=== PATIENT | female | born 1965 | race Caucasian/White ===

== ENCOUNTER 2019-04-05 19:09 | Emergency (ER) | payer OTHER, SELFPAY ==
[2019-04-05 19:30] VITALS: BP 185/103; PULSE 78; RESP 21; TEMP 37.1; O2SAT 98; BMI 24.1
--- NOTE | 2019-04-05 19:37 | DI.CT.S_ITS ---
PROCEDURE: CT HEAD/BRAIN WO CON INDICATIONS: fall with head/face injury TECHNIQUE: Noncontrast 4.5 mm thick angled axial sections acquired from the foramen magnum to the vertex, with coronal and sagittal reformats. For radiation dose reduction, the following was used: automated exposure control, adjustment of mA and/or kV according to patient size. COMPARISON: None. FINDINGS: Image quality: Excellent. CSF spaces: Basal cisterns are patent. No extra-axial fluid collections. Ventricles are normal in size and shape. Brain: No midline shift. No intracranial masses or hemorrhage. Ceron-white matter interface is normal. Skull and face: Calvarium and visualized facial bones are intact, without suspicious lesions. Right facial periorbital soft tissue swelling/hematoma. Sinuses: Visualized sinuses and mastoids are clear. IMPRESSION: No acute intracranial disease process. Dictated by: Jes Gomez MD, PhD on 04/05/2019 at 19:59 Approved by: Jes Gomez MD, PhD on 04/05/2019 at 20:00
--- NOTE | 2019-04-05 19:37 | DI.CT.S_ITS ---
PROCEDURE: CT FACIAL BONES WO CON INDICATIONS: fall with significant facial injury TECHNIQUE: Noncontrast 2.5 mm thick axial images acquired from the mandible through the frontal sinuses, with coronal and sagittal reformatting. For radiation dose reduction, the following was used: automated exposure control, adjustment of mA and/or kV according to patient size. COMPARISON: None. FINDINGS: Image quality: Excellent. Bones and teeth: Orbital teresa are intact. Sinus teresa show no fracture or deformity. Nasal bones and septum are intact. Visualized portions of the mandible demonstrate no fractures or subluxation. Zygomatic arches are intact. Pterygoid plates are intact. Visualized portions of the skull base and auditory canals are intact. Sinuses: Paranasal sinuses are aerated, without fluid levels, mucosal thickening, or mucoceles. Mastoid air cells are aerated. Soft tissues: Right periorbital facial soft tissue swelling/hematoma noted. No enlarged lymph nodes. No soft tissue lacerations or debris. Vascular: Visualized vascular structures appear normal in the absence of contrast. Bony vascular foramina and canals are intact. IMPRESSION: No fracture. Dictated by: Jes Gomez MD, PhD on 04/05/2019 at 20:01 Approved by: Jes Gomez MD, PhD on 04/05/2019 at 20:04
[2019-04-05 19:59] VITALS: BP 194/106; PULSE 81; RESP 16; O2SAT 100
--- NOTE | 2019-04-05 20:25 | ED.FALL ---
HPI - Fall General Chief Complaint: Fall Stated Complaint: Fell, hit rt eye Time Seen by Provider: 04/05/19 19:37 Source: patient and family Mode of arrival: ambulatory Limitations: no limitations History of Present Illness HPI Narrative: 54-year-old female nonsmoker with history of hypertension presents with her in the chief complaint of a mechanical fall in which she has stumbled and fell forward into a wall last night. She denies any loss of consciousness nor vomiting. She takes no blood thinners and denies use of alcohol or street drugs. She denies any neck pain and has no focal neurologic findings such as numbness, weakness or tingling. She does have rather significant swelling over her right eye and has had decreased appetite and nausea over the course of the day. She is acting normal and at her baseline per her . MD complaint: fall Onset (ago): day(s) Fall from: standing Fall witnessed: yes, by family Place fall occurred: home Loss of consciousness: none Prolonged down time: no Symptoms prior to fall: none Context: tripped/slipped Location of injury: face Severity: moderate Associated symptoms (after fall): headache Related Data Previous Rx's Medication Instructions Recorded ketorolac 10 mg PO Q6H PRN #14 tab 04/05/19 ondansetron 4 mg PO TID-QID PRN #10 tab 04/05/19 Allergies Allergy/AdvReac Type Severity Reaction Status Date / Time No Known Drug Allergies Allergy Verified 04/05/19 20:31 Review of Systems Constitutional Denies chills, Denies fever(s), Denies lethargy and Denies weakness Eyes Denies change in vision, Denies eye discharge, Denies irritation and Denies loss of vision ENT Ears, Nose, Mouth, and Throat: Denies change in voice, Denies neck pain and Denies sore throat Cardiovascular Denies chest pain, Denies irregular heart rhythm, Denies lightheadedness, Denies palpitations, Denies dyspnea, Denies dyspnea on exertion and Denies orthopnea Respiratory Denies cough, Denies dyspnea, Denies dyspnea on exertion and Denies wheezing Gastrointestinal Gastrointestinal: Denies abdominal pain, Denies change in bowel habits, Denies diarrhea, Denies nausea and Denies vomiting Genitourinary Denies hematuria, Denies flank pain, Denies urinary incontinence and Denies urinary urgency Musculoskeletal Denies neck pain Integumentary/Breasts Denies pruritus, Reports erythema, Denies rash, Reports unusual bruising and Denies wounds Neurologic Denies confusion, Denies loss of vision and Denies weakness Psychiatric Denies anxiety, Denies confusion, Denies depression, Denies homicidal ideation and Denies suicidal ideation Endocrine Denies palpitations Hematologic/Lymphatic Denies easy bruising Allergic/Immunologic Denies wheezing Exam Narrative Exam Narrative: GENERAL: [54] year old patient appears stated age. Well-nourished, well-developed patient, in mild distress. GCS 15 HEAD: Large amount of ecchymosis around the right eye. No step-off or crepitance noted on orbit, no evidence of depressed skull fracture EYES: Large amount of swelling of upper and lower lid with ecchymosis around right eye, lid easily opened and there is no diplopia, subconjunctival hemorrhage or hyphema. She has no visual change Pupils equal round and reactive. Extraocular motions intact. No scleral icterus. No injection or drainage. ENT: Nose without bleeding, purulent drainage. Throat without erythema, tonsillar hypertrophy or exudate. Airway patent. NECK: Trachea midline. Non tender CARDIOVASCULAR: Regular rate and rhythm without murmurs, gallops, or rubs. RESPIRATORY: Clear to auscultation. Breath sounds equal bilaterally. No wheezes, rales, or rhonchi. GASTROINTESTINAL: Abdomen soft, non-tender, nondistended. EXTREMITIES: No edema or joint tenderness. BACK: Nontender without deformity or crepitance. No flank tenderness. NEURO: AOx3. SKIN: No rash or erythema of visible areas Initial Vital Signs Initial Vital Signs: Vital Signs Temperature 98.7 F 04/05/19 19:30 Pulse Rate 78 04/05/19 19:30 Respiratory Rate 21 04/05/19 19:30 Blood Pressure 185/103 H 04/05/19 19:30 Pulse Oximetry 98 04/05/19 19:30 [facility] Social History Smoking Status: Former smoker Social History Smoking Status: Former smoker Course Orders Ordered: ED Orders 04/05/19 19:37 CT facial bones wo con Stat CT head/brain wo con Stat 04/05/19 20:20 Basic Metabolic Panel Stat Complete Blood Count AUTO DIFF Stat Troponin I Stat Discontinued Medications Sodium Chloride (Normal Saline 0.9%) 1,000 mls @ 1,000 mls/hr IV BOLUS ONE Stop: 04/05/19 21:20 Last Infusion: 04/05/19 22:05 Dose: 0 mls/hr Admin: 04/05/19 20:32 Dose: 1,000 mls/hr Ketorolac Tromethamine (Toradol) 15 mg IV NOW ONE Stop: 04/05/19 20:53 Last Admin: 04/05/19 21:13 Dose: 15 mg Ondansetron HCl (Zofran Odt Prepack) 1 bottle MISC SEEINSTR ONE Stop: 04/05/19 20:04 Last Admin: 04/05/19 21:13 Dose: 1 bottle Ondansetron HCl (Zofran) 4 mg IV Q4HR PRN PRN Reason: Nausea And Vomiting Last Admin: 04/05/19 20:32 Dose: 4 mg Pantoprazole Sodium (Protonix) 40 mg IV NOW ONE Stop: 04/05/19 20:22 Last Admin: 04/05/19 20:32 Dose: 40 mg Vital Signs - 8 hr 04/05/19 19:30 04/05/19 19:59 04/05/19 20:30 Temperature 98.7 F Pulse Rate 78 81 71 Respiratory Rate 21 16 15 Blood Pressure 185/103 H Blood Pressure [Left Arm] 194/106 H 186/105 H Pulse Oximetry 98 100 99 04/05/19 20:43 04/05/19 21:26 04/05/19 22:06 Temperature Pulse Rate 71 69 75 Respiratory Rate 16 15 19 Blood Pressure Blood Pressure [Left Arm] 186/105 H 173/111 H 147/83 H Pulse Oximetry 98 96 96 MDM - Fall Lab Data Result diagrams: 04/05/19 20:20 04/05/19 20:20 Lab Results 04/05/19 04/05/19 Range/Units 20:20 20:20 WBC 6.8 (4.5-11.0) X10^3/uL RBC 4.18 (4.0-5.2) X10^6/uL Hgb 14.4 (12.0-16.0) g/dL Hct 40.7 (36-46) % MCV 97.3 (80-100) fL MCH 34.5 H (26-34) PG MCHC 35.5 (30-36) % RDW 12.7 (11.6-14.8) % Plt Count 186 (150-400) X10^3/uL Neut % (Auto) 70.1 (50-75) % Lymph % (Auto) 22.3 L (25-40) % Hardee % (Auto) 6.7 (3-14) % Eos % (Auto) 0.3 L (2-4) % Baso % (Auto) 0.6 (0-2) % Neut # (Auto) 4800 (2286-9570) /uL Lymph # (Auto) 1500 (7621-5742) /uL Hardee # (Auto) 500 (0-900) /uL Eos # (Auto) 0 (0-450) /uL Baso # (Auto) 0 (0-100) /uL Sodium 137 (137-145) mmol/L Potassium 4.1 (3.4-5.1) mmol/L Chloride 100 (98-107) mmol/L Carbon Dioxide 27 (22-32) mmol/L BUN 13 (7-17) mg/dL Creatinine 0.60 (0.52-1.04) mg/dL Estimated GFR > 60.0 (>60) mL/min BUN/Creatinine Ratio 21.7 (6-22) Glucose 106 H (70-100) mg/dL Calcium 10.1 (8.4-10.2) mg/dL Troponin I < 0.012 (0.01-0.034) ng/mL Imaging Data CT scan - head: Radiologist's impression: [address] [address] [address] Scan Report Signed Patient: Elham Hendricks [facility]#: [id number] : 1965Acct:[id number] Age/Sex: 54 / FDate of Service: 04/05/19 Loc: ED Accession Number: [id number] Procedure: CT head/brain wo con Ordering Provider: Jignesh Archer D.O. PROCEDURE: CT HEAD/BRAIN WO CON INDICATIONS: fall with head/face injury TECHNIQUE: Noncontrast 4.5 mm thick angled axial sections acquired from the foramen magnum to the vertex, with coronal and sagittal reformats. For radiation dose reduction, the following was used: automated exposure control, adjustment of mA and/or kV according to patient size. COMPARISON: None. FINDINGS: Image quality: Excellent. CSF spaces: Basal cisterns are patent. No extra-axial fluid collections. Ventricles are normal in size and shape. Brain: No midline shift. No intracranial masses or hemorrhage. Ceron-white matter interface is normal. Skull and face: Calvarium and visualized facial bones are intact, without suspicious lesions. Right facial periorbital soft tissue swelling/hematoma. Sinuses: Visualized sinuses and mastoids are clear. IMPRESSION: No acute intracranial disease process. Dictated by: Jes Gomez MD, PhD on 04/05/2019 at 19:[address]: Radiologist's impression: [facility] DATE TYPE STATUS AUTHOR Hx 04/05/19 19:37 Jes Gomez 04/05/19 19:37 Jes Gomez Elham Hendricks 54, F0 1965 REG ER, ED.LOC - Main ED: R05 165.1cm 65.771kg BMI: 24.1kg/m? Fall Search Chart No Data to Display No Data to Display No Data to Display No Data to Display Today 19:59 Elham Hendricks 54 F 1965 [place] [address] CT Scan Report Signed Patient: Elham Hendricks [facility]#: [id number] : 1965Acct:[id number] Age/Sex: 54 / FDate of Service: 04/05/19 Loc: ED Accession Number: [id number] Procedure: CT facial bones wo con Ordering Provider: Jignesh Archer D.O. PROCEDURE: CT FACIAL BONES WO CON INDICATIONS: fall with significant facial injury TECHNIQUE: Noncontrast 2.5 mm thick axial images acquired from the mandible through the frontal sinuses, with coronal and sagittal reformatting. For radiation dose reduction, the following was used: automated exposure control, adjustment of mA and/or kV according to patient size. COMPARISON: None. FINDINGS: Image quality: Excellent. Bones and teeth: Orbital teresa are intact. Sinus teresa show no fracture or deformity. Nasal bones and septum are intact. Visualized portions of the mandible demonstrate no fractures or subluxation. Zygomatic arches are intact. Pterygoid plates are intact. Visualized portions of the skull base and auditory canals are intact. Sinuses: Paranasal sinuses are aerated, without fluid levels, mucosal thickening, or mucoceles. Mastoid air cells are aerated. Soft tissues: Right periorbital facial soft tissue swelling/hematoma noted. No enlarged lymph nodes. No soft tissue lacerations or debris. Vascular: Visualized vascular structures appear normal in the absence of contrast. Bony vascular foramina and canals are intact. IMPRESSION: No fracture. Dictated by: Jes Gomez MD, PhD on 04/05/2019 at 20:01 Discharge Plan Departure Patient Disposition: Home Clinical Impression: Concussion Qualifiers: Encounter type: initial encounter Loss of consciousness presence/duration: without LOC Qualified Code(s): S06.0X0A - Concussion without loss of consciousness, initial encounter Discharge Date/Time: 04/05/19 22:13 Interventions: ED Discharge Assessment Last Done: 04/05/19 22:21 Instructions: DI for Concussion, DI for Contusion Activity Restrictions/Additional Instructions: You have a slight concussion and will likely have a mild headache and some nausea for a few days. Avoiding highly stimulating activities and even TV or computers may be helpful in minimizing your symptoms. Avoid activities that will put you at risk for another head injury for at least a week. You can take tylenol or motrin for headache or the prescription provided for nausea/vomiting. Return for worsening or persistent symptoms Prescriptions: New ketorolac 10 mg tablet 10 mg PO Q6H PRN (Reason: pain) Qty: 14 RF: 0 ondansetron 4 mg tablet,disintegrating 4 mg PO TID-QID PRN (Reason: nausea and vomiting) Qty: 10 RF: 0
[2019-04-05 20:29] LABS: Add Manual Diff / Slide Review NO; Basophils Absolute Auto 0 /uL (0-100); Basophils Percent Auto 0.6 % (0-2); Eosinophils Absolute Auto 0 /uL (0-450); Eosinophils Percent Auto 0.3 % (2-4); Hematocrit 40.7 % (36-46); Hemoglobin 14.4 g/dL (12.0-16.0); Lymphocytes Absolute Auto 1500 /uL (1100-4500); Lymphocytes Percent Auto 22.3 % (25-40); Mean Corpuscular HGB Conc 35.5 % (30-36); Mean Corpuscular Hemoglobin 34.5 PG (26-34); Mean Corpuscular Volume 97.3 fL (80-100); Monocytes Absolute Auto 500 /uL (0-900); Monocytes Percent Auto 6.7 % (3-14); Neutrophils Absolute Auto 4800 /uL (1500-7000); Neutrophils Percent Auto 70.1 % (50-75); Platelet Count 186 X10^3/uL (150-400); Red Blood Cell Count 4.18 X10^6/uL (4.0-5.2); Red Cell Distribution Width 12.7 % (11.6-14.8); White Blood Cell Count 6.8 X10^3/uL (4.5-11.0)
[2019-04-05 20:30] VITALS: BP 186/105; PULSE 71; RESP 15; O2SAT 99
[2019-04-05] MEDS: PANTOPRAZOLE 40 MG VIAL IV (20:32)
[2019-04-05] MEDS: ONDANSETRON 4 MG/2 ML INJ IV (20:32)
[2019-04-05] MEDS: SODIUM CHLORIDE 0.9% 1,000 ML 1000 ML IV (20:32)
[2019-04-05 20:40] LABS: BUN Creatinine Ratio 21.7 (6-22); Blood Urea Nitrogen 13 mg/dL (7-17); Calcium 10.1 mg/dL (8.4-10.2); Carbon Dioxide 27 mmol/L (22-32); Chloride 100 mmol/L (98-107); Estimated Glomerular Filt Rate > 60.0 mL/min (>60); Glucose 106 mg/dL (70-100); HEMOLYSIS < 15 (0-50); Potassium 4.1 mmol/L (3.4-5.1); Sodium 137 mmol/L (137-145)
[2019-04-05 20:43] VITALS: BP 186/105; PULSE 71; RESP 16; O2SAT 98
[2019-04-05 20:52] LABS: Troponin I < 0.012 ng/mL (0.01-0.034)
[2019-04-05] MEDS: ONDANSETRON 4 MG ODT PREPACK 1 BOTTLE MISC (21:13)
[2019-04-05] MEDS: KETOROLAC 60 MG/2 ML VIAL 15 MG IV (21:13)
[2019-04-05 21:26] VITALS: BP 173/111; PULSE 69; RESP 15; O2SAT 96
[2019-04-05 22:06] VITALS: BP 147/83; PULSE 75; RESP 19; O2SAT 96
== END 2019-04-05 22:13 | disposition home or self-care (01) ==
PROVIDERS: Emergency Provider Emergency Medicine
DX: S06.0X0A Concussion without loss of consciousness, initial encounter (principal); W01.0XXA Fall on same level from slipping, tripping and stumbling without subsequent striking against object, initial encounter
CPT/HCPCS: 36591; 70450; 70486; 80048; 84484; 85025; 96361; 96374; 96375; 99283; 99284; C9113; J1885; J2405